=== PATIENT | female | born 1995 ===

== ENCOUNTER 2017-01-17 21:25 | Emergency (ER) | payer BC ==
[2017-01-17 21:33] VITALS: BP 131/71
--- NOTE | 2017-01-17 22:05 | ED ---
HPI Chest Pain - HPI Summary HPI Summary: 21 YEAR OLD FEMALE PRESENTS WITH RIGHT SIDED CHEST PAIN. I WILL SEND HER TO THE ER TO RULE OUT CA/PE. SPOKE TO DR HERMOSILLO - History of Current Complaint Chief Complaint: UCChestPain Pain Intensity: 7 Pain Scale Used: 0-10 Numeric - Allergy/Home Medications Allergies/Adverse Reactions: Allergies Allergy/AdvReac Type Severity Reaction Status Date / Time No Known Allergies Allergy Verified 01/17/17 21:33 Home Medications: Home Medications HYDROcodone/ACETAMIN 5-325 MG* [[place] 5-325 TAB*] 1 tab PO Q6H PRN 01/17/17 [ History Confirmed 01/17/17] Ibuprofen TAB* [Motrin TAB* 600 MG] 600 mg PO Q6H PRN 01/17/17 [History Confirmed 01/17/17] PMH/Surg Hx/FS Hx/Imm Hx Respiratory History: Reports: Hx Asthma - Surgical History Surgery Procedure, Year, and Place: left ankle x 4 Infectious Disease History: No Infectious Disease History: Denies: Traveled Outside the [place] in Last 30 Days - Social History Alcohol Use: None Substance Use Type: Reports: None Smoking Status (MU): Never Smoked Tobacco Review of Systems Positive: Chest Pain All Other Systems Reviewed And Are Negative: Yes Physical Exam Triage Information Reviewed: Yes Vital Signs On Initial Exam: Initial Vitals Temp Pulse Resp BP Pulse Ox 36.4 C 72 16 131/71 100 01/17/17 21:27 01/17/17 21:27 01/17/17 21:27 01/17/17 21:27 01/17/17 21:27 Vital Signs Reviewed: Yes Respiratory/Lung Sounds: Positive: Clear to Auscultation Cardiovascular: Positive: Normal Abdomen Description: Positive: Nontender Bowel Sounds: Positive: Present Diagnostics - Vital Signs Vital Signs Temp Pulse Resp BP Pulse Ox 01/17/17 21:27 36.4 C 72 16 131/71 100 - Laboratory Lab Statement: Any lab studies that have been ordered have been reviewed, and results considered in the medical decision making process. Chest Pain Course/Dx - Diagnoses Provider Diagnoses: Chest pain Discharge - Discharge Plan Condition: Critical Disposition: AGAINST MEDICAL ADVICE Patient Education Materials: Chest Pain (ED) Referrals: Non Staff,Doctor [Primary Care Provider] -
== END 2017-01-17 21:45 | disposition left against medical advice (07) ==
LOC: UCCORT 21:25
DX: R07.9 Chest pain, unspecified (principal); J45.909 Unspecified asthma, uncomplicated
CPT/HCPCS: 99202; G0463

== ENCOUNTER 2017-11-12 14:45 | Emergency (ER) | payer BC ==
[2017-11-12 15:18] VITALS: BP 127/62
[2017-11-12] MEDS ORDERED: Fluorescein Sod TOPICAL 0.6* 0.6 MG TEST OPHTHALMIC ONE ×2 (15:26→15:28)
[2017-11-12] MEDS ORDERED: Tetracaine 0.5% OPTH.SOL 4 ML* 1 DROP BTL ONE ×2 (15:26→15:28)
--- NOTE | 2017-11-12 15:40 | UC ---
Eye Complaint HPI - HPI Summary HPI Summary: Pt presents with c/o left eye pain and redness. Pt wears once daily contacts that she wore for 3 days and nights in a row, went to a water park and has not taken them out until today's visit. - History of Current Complaint Chief Complaint: UCEye Stated Complaint: EYE COMPLAINT Time Seen by Provider: 11/12/17 15:13 Hx Obtained From: Patient Hx Last Menstrual Period: 11/11/17 ?: No Onset/Duration: Gradual Onset, Lasting Days, Still Present, Worse Since - onset Timing: Constant Severity Initially: Mild Severity Currently: Moderate Pain Intensity: 5 Character: Dull, Foreign Body Sensation Aggravating Factor(s): Contact Lens Alleviating Factor(s): Nothing Associated Signs And Symptoms: Positive: Drainage (Clear), Vision Impairment Left - Risk Factors Penetrating Injury Risk Factor: Negative Globe Rupture Risk Factors: Negative Acute Glaucoma Risk Factors: Negative Optic Artery Occlusion Risk Factors: Negative - Allergies/Home Medications Allergies/Adverse Reactions: Allergies Allergy/AdvReac Type Severity Reaction Status Date / Time No Known Allergies Allergy Verified 11/12/17 15:18 PMH/Surg Hx/FS Hx/Imm Hx Previously Healthy: Yes - Surgical History Surgical History: Yes Surgery Procedure, Year, and Place: left ankle x 4 - Family History Known Family History: Positive: Cardiac Disease - Social History Occupation: Student Lives: Dormitory/Roommates Alcohol Use: Rare Substance Use Type: None Smoking Status (MU): Never Smoked Tobacco Have You Smoked in the Last Year: No Review of Systems Constitutional: Negative Skin: Negative Eyes: Blurred Vision, Drainage - clear, Eye Redness ENT: Negative Respiratory: Negative Cardiovascular: Negative Gastrointestinal: Negative Genitourinary: Negative Motor: Negative Neurovascular: Negative Musculoskeletal: Negative Neurological: Negative Psychological: Negative Is Patient Immunocompromised?: No All Other Systems Reviewed And Are Negative: Yes Physical Exam Triage Information Reviewed: Yes Appearance: Well-Appearing Vital Signs: Initial Vital Signs Temp 97.7 F 11/12/17 15:14 Pulse 101 11/12/17 15:14 Resp 17 11/12/17 15:14 BP 127/62 11/12/17 15:14 Pulse Ox 100 11/12/17 15:14 Vital Signs Reviewed: Yes Eyes: Positive: Discharge - clear,, Other: - FulGlo uptake at left outer rim of iris at 4 o'clock position ENT Exam: Normal ENT: Positive: Hearing grossly normal Respiratory: Positive: No respiratory distress Musculoskeletal Exam: Normal Neurological Exam: Normal Psychological Exam: Normal Skin Exam: Normal Eye Complaint Course/Dx - Course Course Of Treatment: I called Dr. Bárbara OD; and he accepted her as immediate referral. Pt agreed to go to his office immediately following discharge for immediate evaluation. I discussed with the pt my concern for corneal ulceration and pt verbalizeed understanding and agreed to plan of care. - Differential Dx/Diagnosis Differential Diagnosis/HQI/PQRI: Conjunctivitis, Corneal Abrasion Provider Diagnoses: eye pain. corneal ulceration(?) - Physician Notification/Consults Discussed Patient Care With: Dr. Granger - agreed to see pt immediately Discharge - Sign-Out/Discharge Documenting (check all that apply): Discharge/Admit/Transfer - Discharge Plan Condition: Stable Disposition: HOME Prescriptions: Ofloxacin 0.3%(Ophth)(Nf) [Ocuflox OPTH 0.3%(NF)] 3 drop LEFT EYE Q3H #1 btl Patient Education Materials: Eye Pain (ED) Referrals: Bárbara ARELLANO,Sukhdev Moore [Doctor of Osteopathy] - 11/12/17 Non Staff,Doctor [Primary Care Provider] - Additional Instructions: Please go directly to Dr. Granger's office now. - Billing Disposition and Condition Condition: STABLE Disposition: HOME
== END 2017-11-12 15:48 | disposition home or self-care (01) ==
LOC: UCCORT 14:45
DX: H57.12 Ocular pain, left eye (principal)
CPT/HCPCS: 99212; A9270-GY; G0463